=== PATIENT | male | born 2005 | race Caucasian/White ===

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

== ENCOUNTER 2024-04-10 16:40 | Emergency (ER) | payer OTHER ==
[~2024-04-10] VITALS: Ht 182.9 cm; Wt 122.5 kg
[~2024-04-10 16:40] MED LIST changes: +ACET325 PO; +Calcium Carbon500 MG PO; +IBUP400 PO
[2024-04-10 16:59] VITALS: BP 141/85
== END 2024-04-10 18:11 | disposition home or self-care (01) ==
LOC: ER 16:40
DX: S80.01XA Contusion of right knee, initial encounter (principal); W01.0XXA Fall on same level from slipping, tripping and stumbling without subsequent striking against object, initial encounter; Z88.7 Allergy status to serum and vaccine; Z91.040 Latex allergy status; Z79.899 Other long term (current) drug therapy
CPT/HCPCS: 73562-RT; 99283-25

== ENCOUNTER 2024-04-21 14:52 | Emergency (ER) | payer OTHER ==
[~2024-04-21] VITALS: Ht 185.4 cm; Wt 122.5 kg
[2024-04-21 15:04] VITALS: BP 164/85
== END 2024-04-21 18:52 | disposition home or self-care (01) ==
LOC: ER 14:52
DX: S80.01XA Contusion of right knee, initial encounter (principal); M70.51 Other bursitis of knee, right knee; Z88.7 Allergy status to serum and vaccine; Z91.040 Latex allergy status; Z79.899 Other long term (current) drug therapy; W19.XXXA Unspecified fall, initial encounter
CPT/HCPCS: 73562-RT; 93971; 99284-25

== ENCOUNTER 2024-08-31 09:40 | Emergency (ER) | payer OTHER ==
[~2024-08-31] VITALS: Ht 185.4 cm; Wt 1.8 kg
[2024-08-31 09:53] VITALS: BP 117/79
[2024-08-31] MEDS ORDERED: Lidocaine HCl 2% Jelly 120MG/6ML SYR (20MG PER ML) TOP ONE (10:15)
[2024-08-31] MEDS ORDERED: Lidocaine 2% Jelly Uro-Jet TOP ONE (10:15)
[2024-08-31] MEDS ORDERED: CIPHYDOTSU LEFTEAR (13:25)
== END 2024-08-31 13:44 | disposition home or self-care (01) ==
LOC: ER 09:40
DX: T16.2XXA Foreign body in left ear, initial encounter (principal); W44.F4XA Insect entering into or through a natural orifice, initial encounter; Z91.040 Latex allergy status; Z88.7 Allergy status to serum and vaccine
CPT/HCPCS: 69200; 99282-25; A9270

== ENCOUNTER 2024-10-21 22:24 | Emergency (ER) | payer OTHER ==
[~2024-10-21] VITALS: Ht 185.4 cm; Wt 74.8 kg
[~2024-10-21 22:24] MED LIST changes: +CIPHYDOTSU LEFTEAR
[2024-10-21 23:42] VITALS: BP 131/87
== END 2024-10-22 01:11 | disposition home or self-care (01) ==
LOC: ER 22:24
DX: E86.0 Dehydration (principal); Z88.7 Allergy status to serum and vaccine; Z91.040 Latex allergy status; Z91.018 Allergy to other foods; Z91.048 Other nonmedicinal substance allergy status; Z79.899 Other long term (current) drug therapy
CPT/HCPCS: 93005; 93010; 99284-25